=== PATIENT | female | born 1985 | race Caucasian/White ===

== ENCOUNTER → 2016-12-13 | Outpatient (CLI) | payer BC ==
[~2016-12-13] MED LIST: AMITIZA8 MCG PO; ASCORBIC ACID500 MG PO; BYSTOLIC5 MG PO; TRINTELLIX 5 MG PO; VITAMIN D1000 UNIT PO; ZINC30 MG PO
== END | disposition disaster alternative care site (69) ==
LOC: GOPD 12-10
DX: M51.16 Intervertebral disc disorders with radiculopathy, lumbar region (principal); M54.5 Low back pain
CPT/HCPCS: J1040